=== PATIENT | female | born 1985 | race Caucasian/White ===

== ENCOUNTER → 2017-03-14 | Outpatient (CLI) | payer MEDICAID | END | disposition home or self-care (01) | LOC: LABWHC1 10:27 | PROVIDERS: ATTEND Obstetrics & Gynecology | DX: N92.0 Excessive and frequent menstruation with regular cycle (principal) | CPT/HCPCS: 36415; 84439; 84443 ==

== ENCOUNTER → 2017-03-18 | Outpatient (CLI) | payer MEDICAID ==
--- NOTE | 2017-03-19 08:01 | US ---
EXAMINATION TYPE: US pelvic complete DATE OF EXAM: 03/18/2017 1:38 PM COMPARISON: NONE CLINICAL HISTORY: N92.0 Menorrhagia. Irregular menses, heavy bleeding, prior TECHNIQUE: Transabdominal (TA) Date of LMP: unknown EXAM MEASUREMENTS: Uterus: 9.4 x 4.3 x 4.8 cm Endometrial Stripe: 0.5 cm Right Ovary: 3.1 x 2.1 x 1.4 cm Left Ovary: 3.8 x 1.5 x 2.4 cm 1. Uterus: Anteverted Hypoechoic area posterior body = 1.6 x 1.1 x 1.7cm (probable fibroid) 2. Endometrium: appears wnl 3. Right Ovary: appears wnl 4. Left Ovary: follicles noted 5. Bilateral Adnexa: wnl 6. Posterior cul-de-sac: wnl Urinary bladder is sonolucent. The posterior wall is normal. IMPRESSION: 1. Uterine fibroid posterior uterine body. 2. Pelvic ultrasound otherwise unremarkable..
== END | disposition home or self-care (01) ==
LOC: RADUSWWP 13:23
PROVIDERS: ATTEND Obstetrics & Gynecology
DX: D25.9 Leiomyoma of uterus, unspecified (principal)
CPT/HCPCS: 76856

== ENCOUNTER → 2018-06-19 | Outpatient (CLI) | payer MEDICAID ==
--- NOTE | 2018-06-23 11:05 | MM ---
Reason for exam: screening (asymptomatic). Baseline mammogram. History: Taking hormonal contraceptives beginning at age 14. Physical Findings: Nurse did not find any significant physical abnormalities on exam. MG Screening Mammo w CAD Bilateral CC and MLO view(s) were taken. The breast tissue is heterogeneously dense. This may lower the sensitivity of mammography. No suspicious abnormality. These results were verbally communicated with the patient and result sheet given to the patient on 06/19/18. ASSESSMENT: Negative, BI-RAD 1 RECOMMENDATION: Routine screening mammogram of both breasts at age 38.
== END | disposition home or self-care (01) ==
LOC: RADMAMWWP 12:56
PROVIDERS: ATTEND Obstetrics & Gynecology
DX: Z12.31 Encounter for screening mammogram for malignant neoplasm of breast (principal)
CPT/HCPCS: 77067

== ENCOUNTER → 2020-05-23 | Outpatient (CLI) | payer MEDICAID | END | disposition home or self-care (01) | LOC: LABWHC1 12:26 | PROVIDERS: ATTEND Nurse Practitioner Family | DX: Z20.828 Contact with and (suspected) exposure to other viral communicable diseases (principal) | CPT/HCPCS: U0003; C9803 ==

== ENCOUNTER → 2021-07-16 | Outpatient (CLI) | payer MEDICAID, OTHER | END | disposition home or self-care (01) | LOC: LABWHC1 08:14 | PROVIDERS: ATTEND Emergency Medicine | DX: Z20.822 Contact with and (suspected) exposure to COVID-19 (principal) | CPT/HCPCS: 87635 ==

== ENCOUNTER → 2021-07-17 | Outpatient (CLI) | payer MEDICAID, OTHER | END | disposition home or self-care (01) | LOC: LABWHC1 08:06 | PROVIDERS: ATTEND Emergency Medicine | DX: Z20.822 Contact with and (suspected) exposure to COVID-19 (principal) | CPT/HCPCS: 87635 ==

== ENCOUNTER → 2023-09-16 | Outpatient (CLI) | payer MEDICAID ==
--- NOTE | 2023-09-17 18:33 | MM ---
Reason for Exam: Screening (asymptomatic). Last mammogram was performed 5 year(s) and 3 month(s) ago. Patient History: Menarche at age 11. First Full-Term at age 26. Currently using Hormonal Contraceptives, starting at age 14. Last menstrual period: 09/02/2023 Risk Values: Leida 5 year model risk: 0.6%. NCI Lifetime model risk: 11.1%. Prior Study Comparison: 06/19/2018 Bilateral Screening Mammogram, [facility]. Tissue Density: The breast tissue is heterogeneously dense. This may lower the sensitivity of mammography. Findings: Analyzed By CAD. Pattern appears symmetrical and stable. No significant interval change. Benign punctate calcifications within the right breast. No suspicious groups of microcalcifications, spiculated or lobular masses, architectural distortion or other secondary signs of malignancy are mammographically apparent. Overall Assessment: Benign, BI-RAD 2 Management: Screening Mammogram of both breasts in 1 year. A negative mammogram report should not preclude additional follow up of suspicious palpable abnormalities. Patient should continue monthly self breast exam. A clinical breast exam by your physician is recommended on an annual basis and results should be correlated with mammographic findings. Electronically signed and approved by: Frantz Hall D.O. Radiologis
== END | disposition home or self-care (01) ==
LOC: RADMAMWWP 07:27
PROVIDERS: ATTEND Family Medicine
DX: Z12.31 Encounter for screening mammogram for malignant neoplasm of breast (principal)
CPT/HCPCS: 77063; 77067

== ENCOUNTER → 2023-11-26 | Outpatient (CLI) | payer MEDICAID ==
--- NOTE | 2023-11-26 16:46 | US ---
EXAMINATION TYPE: US pelvic complete DATE OF EXAM: 11/26/2023 COMPARISON: 03/18/2017 CLINICAL INDICATION: Female, 38 years old with history of R10.2 PELVIC AND PERINEAL PAIN; ongoing pel eileen pain for months, known fibroid, , TECHNIQUE: TA. Transabdominal sonographic images of the pelvis were acquired. Date of LMP: unknown EXAM MEASUREMENTS: Uterus: 10.3 x 5.0 x 4.7 cm. Endometrial Stripe: 0.6 cm. Right Ovary: 2.8 x 2.8 x 3.1 cm. Left Ovary: 2.1 x 2.6 x 1.0 cm. 1. Uterus: Anteverted 2 fibroids seen, posterior = 1.6 x 1.6 x 1.0cm, anterior 1.5 x 1.3 x 1.1cm 2. Endometrium: wnl 3. Right Ovary: simple appearing cyst = 2.2 x 2.4 x 2.5cm 4. Left Ovary: wnl 5. Bilateral Adnexa: wnl 6. Posterior cul-de-sac: wnl IMPRESSION: 1. No evidence for acute pelvic process. 2. Fibroid changes. 3. Right ovarian dominant follicle measuring up to 2.5 cm.
== END | disposition home or self-care (01) ==
LOC: RADUSWWP 15:57
PROVIDERS: ATTEND Obstetrics & Gynecology
DX: D25.9 Leiomyoma of uterus, unspecified (principal); R10.2 Pelvic and perineal pain
CPT/HCPCS: 76856